=== PATIENT | male | born 1995 | race African-American/Black ===

== ENCOUNTER 2018-05-13 08:54 | Emergency (ER) | payer MEDICAID ==
[~2018-05-13] VITALS: Ht 167.6 cm; Wt 61.2 kg
[2018-05-13 09:02] VITALS: BP 115/76
[2018-05-13] MEDS ORDERED: KETOROLAC TROMETH 60MG/2ML VIAL IM ONE (10:00)
== END 2018-05-13 10:14 | disposition home or self-care (01) ==
LOC: ER 08:54
DX: K08.89 Other specified disorders of teeth and supporting structures (principal); H60.93 Unspecified otitis externa, bilateral